=== PATIENT | male | born 1980 | race African-American/Black ===

== ENCOUNTER 2022-11-02 19:35 | Emergency (ER) | payer MEDICAID ==
[~2022-11-02] VITALS: Ht 193 cm; Wt 163.3 kg
[2022-11-02 19:58] VITALS: BP 115/80
--- NOTE | 2022-11-02 20:02 | NUR ---
TO LOBBY A/W BED AMBULATORY
--- NOTE | 2022-11-02 20:12 | NUR ---
Patient refused blood drawn Addendum: 11/02/22 at 2014 by [email or web address] Patient refused blood drawn, Dr. Roy notified.
--- NOTE | 2022-11-02 20:14 | NUR ---
Patient being evaluated by [facility]
[2022-11-02] MEDS ORDERED: DICYCLOMINE HCL LIQUID 10 MG/5 ML UDC PO ONE (20:30)
[2022-11-02] MEDS ORDERED: FAMO-90 PO (21:15)
[2022-11-02] MEDS ORDERED: BACI-416 TP (21:15)
[2022-11-02] MEDS ORDERED: ACET-2619 PO (21:15)
[2022-11-02] MEDS ORDERED: BEN10 PO (21:15)
[2022-11-02 21:24] VITALS: BP 117/80
--- NOTE | 2022-11-02 21:24 | NUR ---
Patient discharged with v/s stable. Written and verbal after care instructions given and explained. Patient alert, oriented and verbalized understanding of instructions. Ambulatory with steady gait. All questions addressed prior to discharge. ID band removed. Patient advised to follow up with PMD. Rx of Tylenol, Bacitracin, Bentyl and Pepcid given. Patient educated on indication of medication including possible reaction and side effects. Opportunity to ask questions provided and answered.
--- NOTE | 2022-11-02 21:28 | NUR ---
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
== END 2022-11-02 21:24 | disposition home or self-care (01) ==
LOC: MED 19:35
DX: K92.0 Hematemesis (principal)
CPT/HCPCS: 99283